=== PATIENT | female | born 1970 ===

== ENCOUNTER 2021-06-12 16:54 | Emergency (ER) | payer SELFPAY ==
[2021-06-12 17:15] VITALS: BP 125/76
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
== END 2021-06-12 22:14 | disposition left against medical advice (07) ==
LOC: ED 16:54
DX: M54.50 Low back pain, unspecified (principal); Y04.8XXA Assault by other bodily force, initial encounter; Y93.89 Activity, other specified; Y92.89 Other specified places as the place of occurrence of the external cause; Y99.8 Other external cause status
CPT/HCPCS: 99283